=== PATIENT | female | born 1980 | race Caucasian/White ===

== ENCOUNTER 2019-09-02 16:33 | Outpatient (CLI) | payer OTHER, SELFPAY ==
--- NOTE | ~2019-09-02 | US_ITS ---
EXAMINATION: US venous doppler [facility] EXAM DATE: 09/02/2019 17:08 INDICATION: Left leg swelling. TECHNIQUE: Multiple grayscale, color flow and Doppler images of the left lower extremity deep venous system were obtained and reviewed. There is no prior study for comparison. FINDINGS: The left common femoral, femoral and profunda veins demonstrate normal color flow, respirat ory variation, augmentation and compressibility. Compressibility, color flow confirmed within the le ft popliteal, posterior tibial, peroneal, and greater saphenous veins. IMPRESSION: 1. No left lower extremity deep venous thrombosis. Reviewed, dictated and finalized at location A. HING MANAGER
== END 2019-09-02 16:34 | disposition home or self-care (01) ==
LOC: ANHIMG 16:45
PROVIDERS: Visit Provider Orthopaedic Surgery
DX: M79.89 Other specified soft tissue disorders (principal)
CPT/HCPCS: 93971

== ENCOUNTER 2021-07-03 14:18 | Emergency (ER) | payer MEDICARE, MEDICAID, SELFPAY ==
[2021-07-03 14:33] VITALS: BP 146/83; PULSE 108; RESP 18; TEMP 36.9; O2SAT 98
--- NOTE | 2021-07-03 14:54 | ED.URI ---
HPI - URI/Sore Throat General Chief Complaint: Upper Respiratory Infection Stated Complaint: Sore Throat Time Seen by Provider: 07/03/21 14:54 Source: patient, RN notes reviewed and old records reviewed Mode of arrival: ambulatory Limitations: no limitations History of Present Illness HPI Narrative: 40-year-old female presents to the the [facility] with complaints of a sore throat and sinus congestion for at least the last 10 days. Reports swollen glands and left ear pain. Has a history of chronic sinus issues. Left ear pain. Swollen glands. MD elicited complaint: sore throat Related Data Home Medications Medication Instructions Recorded Confirmed amitriptyline 150 mg PO DIRECTED 07/03/21 07/03/21 diazepam 5 mg PO DIRECTED 07/03/21 07/03/21 ergocalciferol (vitamin D2) 1,250 mcg PO DIRECTED 07/03/21 07/03/21 glimepiride 2 mg PO DIRECTED 07/03/21 07/03/21 hydroxyzine HCl 25 mg PO DIRECTED 07/03/21 07/03/21 lurasidone [Latuda] 40 mg PO DAILY 07/03/21 07/03/21 medroxyprogesterone 150 mg IM DIRECTED 07/03/21 07/03/21 metformin 500 mg PO DIRECTED 07/03/21 07/03/21 pregabalin 150 mg PO DIRECTED 07/03/21 07/03/21 Allergies Allergy/AdvReac Type Severity Reaction Status Date / Time aripiprazole Allergy Unknown HIVES Verified 07/03/21 14:21 adhesive tape AdvReac Unknown RASH Verified 07/03/21 14:21 POTASSIUM CLAVULANATE AdvReac Intermediate YEAST Uncoded 07/03/21 14:21 INFECTION Review of Systems Review of Systems: All systems reviewed & are unremarkable except as noted in HPI and below Constitutional: Constitutional: Reports no additional constitutional complaints, Denies chills and Denies fever(s) Eyes: Eyes: Reports no additional eye complaints ENT: Reports as per HPI, Reports nasal congestion and Denies sore throat Cardiovascular: Cardiovascular: Reports no additional cardiovascular complaints and Denies chest pain Respiratory: Respiratory: Reports no additional respiratory complaints, Denies cough and Denies dyspnea Gastrointestinal: Gastrointestinal: Reports no additional gastrointestinal complaints, Denies abdominal pain, Denies nausea and Denies vomiting Musculoskeletal: Musculoskeletal: Reports no additional musculoskeletal complaints Integumentary/Breasts: Skin/Breast: Reports system reviewed and no additional complaints, except as docu Neurologic: Reports system reviewed and no additional complaints, except as documented Psychiatric: Psychiatric: Reports no additional psychiatric complaints Allergic/Immunologic: Allergic/Immunologic: Reports no additional allergic/immunologic complaints [facility] Past Medical History Medical History Chronic sinusitis Fibromyalgia High cholesterol Hypertension Type 2 diabetes mellitus Surgical History Surgical History (Updated 07/05/21 @ 09:36 by Therese Henao) History of tonsillectomy Comments At the time of my signature, I reviewed and agree with the nursing past medical, surgical, social, and family history. There is no relevant family history pertinent to the patient complaint. Exam Const: General: alert and ill appearing acutely (Mild) Orientation/consciousness: patient oriented x3 HENMT: Head: normal to inspection Ears: external ears normal and EAC's normal General nose exam: Normal external nose present and Abnormal mucous membranes and turbinates present boggy and erythematous Face and sinus: normal facial exam Mouth: Yes Normal oral and palatal mucosa present Throat: posterior oropharynx normal, tonsils normal and uvula midline Eyes: Conjunctivae: conjunctivae normal Pupils: Equal, round and reactive pupils present Direct Ophthalmoscopy: no photophobia Neck: Neck: normal visual inspection, no lymphadenopathy and no meningeal signs Chest: Chest palpation & inspection: normal inspection of the chest Resp: Effort & Inspection: normal respiratory effort and no use of access
== END 2021-07-03 15:07 | disposition home or self-care (01) ==
PROVIDERS: Emergency Provider Nurse Practitioner
DX: J32.9 Chronic sinusitis, unspecified (principal); M79.7 Fibromyalgia; E78.00 Pure hypercholesterolemia, unspecified; I10 Essential (primary) hypertension; E11.9 Type 2 diabetes mellitus without complications
CPT/HCPCS: 87081; 87880; 99213; G0463

== ENCOUNTER 2023-05-22 14:24 | Outpatient (CLI) | payer MEDICARE, MEDICAID, SELFPAY ==
--- NOTE | ~2023-05-22 | MR_ITS ---
EXAMINATION: MR brain/brain stem wo con DATE: 05/22/2023 15:12 INDICATION: Neoplasm of frontal lobe TECHNIQUE: Magnetic resonance imaging (MRI) of the brain and brainstem was performed without intraven ous contrast. Sequences included sagittal and axial T1-weighted SE, axial diffusion-weighted FS SE, a xial 3D SWAN, axial T2*-weighted GRE, axial T2-weighted FLAIR, and axial T2-weighted FSE. Apparent di ffusion coefficient (ADC) maps were created. COMPARISON: 07/09/2018 FINDINGS: There are no areas of restricted diffusion to suggest acute infarction. No intracranial hemorrhage or abnormal intracranial mass lesion. Internal increase in a few small scattered foci of nonspecific in creased T2-weighted signal intensity in the cerebral white matter, predominantly involving the perive ntricular white matter at the frontal lobes. There are no intraparenchymal signal abnormalities seen on the other pulse sequences. The ventricles are symmetric and normal in size. There are no abnormal extra-axial fluid collections. Flow voids are seen in the cerebral arteries on the T2-weighted sequen zayda consistent with their expected patency. Bilateral hyperostosis frontalis along with small amount of dural ossification along the falx. Visualized orbits and soft tissues are unremarkable. There are no areas of abnormal enhancement on the post contrast images. IMPRESSION: 1. A few small foci of nonspecific white matter T2 hyperintensity predominantly in the periventricula r frontal lobes which is slightly disproportionate for age. The differential diagnosis includes molly ture chronic small vessel ischemic disease (especially if the patient has cardiovascular risk factors ), demyelinating disease such as multiple sclerosis, drug abuse, vasculitis, or reactive astrocytosis (gliosis) secondary to nonspecific etiology. Reviewed, dictated and finalized at location A. RINTENDENT STEVEDORING IMPRESSION: 1. A few small foci of nonspecific white matter T2 hyperintensity predominantly in the periventricular frontal lobes which is slightly disproportionate for ag e. The differential diagnosis includes premature chronic small vessel ischemic disease (especially if the patient has cardiovascular risk factors), demyelinat ing disease such as multiple sclerosis, drug abuse, vasculitis, or reactive ast rocytosis (gliosis) secondary to nonspecific etiology.
== END 2023-05-22 14:25 | disposition home or self-care (01) ==
PROVIDERS: PCP Internal Medicine Gastroenterology; Visit Provider Internal Medicine Gastroenterology
DX: D49.6 Neoplasm of unspecified behavior of brain (principal); R90.82 White matter disease, unspecified
CPT/HCPCS: 70551